=== PATIENT | male | born 1975 | race Hispanic/Latino ===

== ENCOUNTER 2018-03-23 12:07 | Day surgery (SDC) | payer OTHER ==
[~2018-03-23] VITALS: Ht 170.2 cm; Wt 108.9 kg
[~2018-03-23 12:07] MED LIST: CETI10CA5 PO; FERR325T22 PO; METH500T6 PO; RANI150T7 PO; TEST75PE9 IL; VENL75CA55 PO
[2018-03-23 12:31] VITALS: BP 139/77
[2018-03-23] MEDS ORDERED: SODIUM CHLORIDE 0.9% 1000ML 1,000 ML IV ONE (12:40)
[2018-03-23 14:31] VITALS: BP 120/80
[2018-03-23 14:35] VITALS: BP 126/67
[2018-03-23 14:40] VITALS: BP 128/76
[2018-03-23 14:45] VITALS: BP 125/75
== END 2018-03-23 15:00 | disposition home or self-care (01) ==
LOC: ENDO 12:07 → DAH 12:07 → ENDO 15:00
PROVIDERS: ATTEND Internal Medicine Gastroenterology
DX: K29.50 Unspecified chronic gastritis without bleeding (principal); K31.7 Polyp of stomach and duodenum; G47.33 Obstructive sleep apnea (adult) (pediatric); Z85.819 Personal history of malignant neoplasm of unspecified site of lip, oral cavity, and pharynx; Z86.010 Personal history of colon polyps; D50.9 Iron deficiency anemia, unspecified; Z68.42 Body mass index [BMI] 45.0-49.9, adult; Z79.899 Other long term (current) drug therapy; Z82.49 Family history of ischemic heart disease and other diseases of the circulatory system; Z87.891 Personal history of nicotine dependence
CPT/HCPCS: 43239; 43251; 88305; 88312; A4606; J7030